=== PATIENT | female | born 1980 | race Caucasian/White ===

== ENCOUNTER → 2021-02-27 10:54 | Outpatient (CLI) | payer OTHER, SELFPAY ==
--- NOTE | 2021-02-27 10:57 | DI.RAD.S_ITS ---
PROCEDURE: XR FINGER RT MIN 2V INDICATIONS: r finger pain TECHNIQUE: AP hand, 2 views of the right 2nd finger(s) acquired. COMPARISON: None. FINDINGS: Bones: No fractures or dislocations. No suspicious bony lesions. Soft tissues: No suspicious soft tissue calcifications. IMPRESSION: No fracture. No osseous lesion. If symptoms and/or clinical suspicion for pathology persists, further assessment with repeat radiographs (7-10 days) or advanced imaging (e.g. CT, MRI or bone scan) should be considered. Dictated by: Soheila Ferrell MD, PhD on 02/27/2021 at 11:08 Approved by: Soheila Ferrell MD, PhD on 02/27/2021 at 11:08
== END ==
PROVIDERS: Referring Provider Physician Assistant; Visit Provider Physician Assistant
DX: M79.644 Pain in right finger(s) (principal)
CPT/HCPCS: 73140